=== PATIENT | female | born 1945 | race Caucasian/White ===

== ENCOUNTER 2019-08-11 14:43 | Outpatient (RCR) | payer MEDICARE, OTHER, SELFPAY ==
[2019-07-07 17:52] LABS: INR 1.9; Prothrombin Time 21.2 Seconds (11.1-14.7)
[2019-08-11 15:18] LABS: INR 1.8; Prothrombin Time 20.4 Seconds (11.1-14.7)
== END 2019-10-05 23:59 | disposition home or self-care (01) ==
LOC: ANHLAB 14:43
DX: I48.91 Unspecified atrial fibrillation (principal)
CPT/HCPCS: 36415; 85610

== ENCOUNTER 2020-07-06 15:03 | Outpatient (RCR) | payer MEDICARE, OTHER, SELFPAY ==
[2020-07-06 15:33] LABS: INR 2.3; Prothrombin Time 25.6 Seconds (11.1-14.7)
== END 2020-10-04 23:59 | disposition home or self-care (01) ==
LOC: ANHLAB 15:03
DX: I48.91 Unspecified atrial fibrillation (principal)
CPT/HCPCS: 36415; 85610

== ENCOUNTER 2021-08-20 13:58 | Outpatient (RCR) | payer MEDICARE, SELFPAY ==
[2021-08-20 15:56] LABS: INR 1.7; Prothrombin Time 19.5 Seconds (11.1-14.7)
== END 2021-10-20 23:59 | disposition home or self-care (01) ==
LOC: ANHLAB 13:58
DX: I48.91 Unspecified atrial fibrillation (principal)
CPT/HCPCS: 36415; 85610

== ENCOUNTER 2022-07-22 13:26 | Outpatient (CLI) | payer MEDICARE, SELFPAY ==
[2022-07-22 13:52] LABS: Basophils Absolute Auto 0.1 K/mm3 (0.0-0.1); Basophils Percent Auto 0.9 % (0.2-1.2); Eosinophils Absolute Auto 0.1 K/mm3 (0-0.3); Eosinophils Percent Auto 2.2 % (0-4.4); Hematocrit 43.8 % (37.0-47.0); Hemoglobin 14.4 g/dL (12.0-15.0); Immature Granulocyte Absolute 0.02 K/mm3 (0.00-0.031); Immature Granulocyte Percent A 0.3 % (0-0.5); Lymphocytes Absolute Auto 1.96 K/mm3 (0.9-3.2); Lymphocytes Percent Auto 30.8 % (18.3-44.2); Mean Corpuscular HGB Conc 32.9 g/dl (32-36); Mean Corpuscular Hemoglobin 31.7 pg (26-34); Mean Corpuscular Volume 96.5 fl (80-100); Mean Platelet Volume 9.8 fl (7.4-10.4); Monocytes Absolute Auto 0.5 K/mm3 (0.1-0.6); Neutrophils Absolute Auto 3.7 K/mm3 (1.3-6.7); Neutrophils Percent Auto 57.8 % (45.5-73.1); Platelet Count Result 225 k/mm3 (150-375); Red Blood Count 4.54 M/mm3 (4.2-5.4); Red Cell Distribution Width 14.1 % (11.5-14.5); White Blood Count 6.4 K/mm3 (4.5-10.0)
[2022-07-22 14:03] LABS: Cholesterol 177 mg/dL (0-200); HDL Direct 68 mg/dL; Magnesium 2.1 mg/dL (1.6-2.3); Triglycerides 117 mg/dL (<150)
[2022-07-22 14:04] LABS: Prothrombin Time 24.2 Seconds (11.1-14.7)
[2022-07-22 14:05] LABS: Partial Thromboplastin Time 35.2 SECONDS (22.3-36.8)
[2022-07-22 14:14] LABS: LDL Cholesterol Direct 71 mg/dL
== END 2022-07-22 13:27 | disposition home or self-care (01) ==
PROVIDERS: Visit Provider Internal Medicine Cardiovascular Disease
DX: I48.91 Unspecified atrial fibrillation (principal); G47.33 Obstructive sleep apnea (adult) (pediatric); I25.10 Atherosclerotic heart disease of native coronary artery without angina pectoris; G47.8 Other sleep disorders; R09.89 Other specified symptoms and signs involving the circulatory and respiratory systems; I49.5 Sick sinus syndrome; Z95.0 Presence of cardiac pacemaker; R06.02 Shortness of breath; R00.2 Palpitations
CPT/HCPCS: 36415; 80061; 83735; 85025; 85610; 85730

== ENCOUNTER 2022-09-13 11:50 | Outpatient (RCR) | payer MEDICARE, SELFPAY ==
[2022-08-13 16:25] LABS: INR 2.2; Prothrombin Time 26.1 Seconds (11.1-14.7)
[2022-09-13 12:11] LABS: INR 1.7; Prothrombin Time 20.8 Seconds (11.1-14.7)
== END 2022-11-11 23:59 | disposition home or self-care (01) ==
LOC: ANHLAB 11:50
PROVIDERS: Visit Provider Internal Medicine Cardiovascular Disease
DX: Z51.81 Encounter for therapeutic drug level monitoring (principal); Z79.01 Long term (current) use of anticoagulants
CPT/HCPCS: 36415; 85610

== ENCOUNTER → 2023-09-15 13:41 | Outpatient (REF) | payer MEDICARE, SELFPAY | LOC: ANHLAB 13:41 | PROVIDERS: Visit Provider Plastic Surgery | DX: C44.92 Squamous cell carcinoma of skin, unspecified (principal) | CPT/HCPCS: 88305 ==